=== PATIENT | male | born 1940 | race Caucasian/White ===

== ENCOUNTER → 2017-06-30 | Outpatient (CLI) | payer OTHER | END | disposition home or self-care (01) | LOC: TOM 08:27 | DX: N28.1 Cyst of kidney, acquired (principal) | CPT/HCPCS: 74178; Q9965 ==

== ENCOUNTER → 2017-09-04 07:22 | Outpatient (CLI) | payer OTHER | END | disposition home or self-care (01) | LOC: LAB 07:22 | DX: R97.20 Elevated prostate specific antigen [PSA] (principal); N40.0 Benign prostatic hyperplasia without lower urinary tract symptoms ==

== ENCOUNTER 2017-09-05 07:23 | Outpatient (CLI) | payer OTHER | END 2017-09-05 17:00 | disposition home or self-care (01) | LOC: MRI 07:23 | DX: N28.1 Cyst of kidney, acquired (principal) | CPT/HCPCS: 72196; 74182; A9579 ==

== ENCOUNTER 2017-09-08 11:22 | Emergency (ER) | payer OTHER ==
[~2017-09-08] VITALS: Ht 170.2 cm; Wt 59.0 kg
[2017-09-08] MEDS ORDERED: SIMVASTATIN10 MG (11:43)
[2017-09-08] MEDS ORDERED: PRINIVIL10 MG (11:43)
[2017-09-08] MEDS ORDERED: DICLOFENAC POTA50 MG PO (13:37)
== END 2017-09-08 13:53 | disposition home or self-care (01) ==
LOC: ER 11:22
DX: M53.3 Sacrococcygeal disorders, not elsewhere classified (principal)

== ENCOUNTER 2017-11-07 10:21 | Outpatient (CLI) | payer OTHER ==
[~2017-11-07 10:21] MED LIST: DICLOFENAC POTA50 MG PO; PRINIVIL10 MG; SIMVASTATIN10 MG
== END 2017-11-07 11:00 | disposition home or self-care (01) ==
LOC: NUCLEAR 10:21
DX: C61 Malignant neoplasm of prostate (principal)
CPT/HCPCS: 78306; A9503

== ENCOUNTER 2018-05-04 08:07 | Outpatient (CLI) | payer OTHER | END 2018-05-04 08:13 | disposition home or self-care (01) | LOC: TOM 08:07 | DX: N20.0 Calculus of kidney (principal); R10.2 Pelvic and perineal pain ==

== ENCOUNTER 2019-11-08 07:35 | Outpatient (CLI) | payer OTHER | END 2019-11-08 07:41 | disposition home or self-care (01) | LOC: TOM 07:35 | PROVIDERS: ATTEND Urology | DX: N20.0 Calculus of kidney (principal); C61 Malignant neoplasm of prostate; N28.89 Other specified disorders of kidney and ureter ==

== ENCOUNTER 2020-10-14 15:47 | Outpatient (CLI) | payer OTHER | END 2020-10-14 15:50 | disposition home or self-care (01) | LOC: TOM 15:47 | PROVIDERS: ATTEND Urology | DX: N28.1 Cyst of kidney, acquired (principal); N20.0 Calculus of kidney; N28.89 Other specified disorders of kidney and ureter; C61 Malignant neoplasm of prostate ==

== ENCOUNTER 2020-10-30 15:14 | Outpatient (CLI) | payer OTHER | END 2020-10-30 15:15 | disposition home or self-care (01) | LOC: RAD 15:14 | PROVIDERS: ATTEND Specialist | DX: I10 Essential (primary) hypertension (principal); R07.89 Other chest pain; C61 Malignant neoplasm of prostate; C67.0 Malignant neoplasm of trigone of bladder ==

== ENCOUNTER → 2021-06-05 | Emergency (ER) | payer OTHER ==
[~2021-06-05] VITALS: Ht 170.2 cm; Wt 66.2 kg
[~2021-06-05] MED LIST changes: +ATORVASTATIN CA20 MG; +CARVEDILOL12.5 MG; +WARFARIN SODIUM1 MG
== END | disposition designated cancer center or children's hospital (05) ==
LOC: ER 02:27
DX: R31.9 Hematuria, unspecified (principal); N39.0 Urinary tract infection, site not specified; R10.2 Pelvic and perineal pain; D64.9 Anemia, unspecified; Z85.46 Personal history of malignant neoplasm of prostate; I10 Essential (primary) hypertension; R19.00 Intra-abdominal and pelvic swelling, mass and lump, unspecified site; Z91.013 Allergy to seafood

== ENCOUNTER 2022-02-17 15:34 | Outpatient (CLI) | payer OTHER | END 2022-02-17 15:40 | disposition home or self-care (01) | LOC: RAD 15:34 | PROVIDERS: ATTEND General Practice | DX: I10 Essential (primary) hypertension (principal) ==

== ENCOUNTER 2022-10-16 11:42 | Emergency (ER) | payer OTHER ==
[~2022-10-16] VITALS: Ht 172.7 cm; Wt 61.2 kg
== END 2022-10-16 17:36 | disposition home or self-care (01) ==
LOC: ER 11:42
DX: R33.9 Retention of urine, unspecified (principal); I10 Essential (primary) hypertension; C61 Malignant neoplasm of prostate; Z91.013 Allergy to seafood

== ENCOUNTER 2023-04-03 01:31 | Emergency (ER) | payer OTHER ==
[~2023-04-03] VITALS: Ht 170.2 cm; Wt 57.2 kg
[2023-04-03 05:52] LABS: PH,URINE 6.5 (5.0-8.0); URINE APPEARANCE Cloudy; URINE BILIRRUBIN Small (NEGATIVE); URINE BLOOD Large; URINE COLOR Dark Yellow; URINE GLUCOSE Negative (NEGATIVE); URINE LEUKOCYTE Large; URINE NITRATE Positive
[2023-04-03 05:55] LABS: URINE BACTERIA 521.6 uL (0.0-1933); URINE RBC 637.6 uL (0.0-20.8)
[2023-04-03 06:28] LABS: URINE PROTEIN 300 (NEGATIVE)
[2023-04-03 08:30] LABS: INR 1.03; PARTIAL THROMBOPLASTIN TIME 23.6 SECONDS (22.0-34.0); PROTHROMBIN TIME 10.8 SECONDS (9.0-11.5)
[2023-04-03] MEDS ORDERED: CIPRO500 MG PO (08:39)
== END 2023-04-03 08:43 ==
LOC: ER 01:31
PROVIDERS: General Practice
DX: N39.0 Urinary tract infection, site not specified (principal); R33.8 Other retention of urine; C61 Malignant neoplasm of prostate; C79.11 Secondary malignant neoplasm of bladder; Z91.041 Radiographic dye allergy status; Z91.013 Allergy to seafood; I10 Essential (primary) hypertension; B96.4 Proteus (mirabilis) (morganii) as the cause of diseases classified elsewhere
CPT/HCPCS: 36415; 51702; 96372; 99284; J0696